=== PATIENT | female | born 1965 | race Caucasian/White ===

== ENCOUNTER → 2017-04-07 | Outpatient (CLI) | payer OTHER, SELFPAY ==
--- NOTE | 2017-04-08 13:39 | US ---
EXAM DESCRIPTION: Thyroid CLINICAL HISTORY: 51 years Female, E03.9 hypothyroidism COMPARISON: None. FINDINGS: The thyroid is very slightly heterogeneous with the right lobe measuring 4.1 x 1.4 x 1.0 cm and the left lobe measuring 4.1 x 1.0 x 1.0 cm with a 4 mm thick isthmus. Overall thyroid size is felt to be within the lower range of normal. On the right no thyroid nodules are noted and on the left a small 3 mm hypoechoic nodule in the mid thyroid is present and felt to not be clinically significant. IMPRESSION: Mildly heterogeneous borderline small thyroid gland with small nonspecific 3 mm hypoechoic nodule mid left lobe of the thyroid. Electronically signed by: Luis Villanueva MD 04/08/2017 1:37 PM CDT
== END | disposition home or self-care (01) ==
LOC: US 15:33
PROVIDERS: ATTEND Obstetrics & Gynecology
DX: E03.9 Hypothyroidism, unspecified (principal)

== ENCOUNTER → 2017-07-05 | Outpatient (CLI) | payer OTHER | END | disposition home or self-care (01) | LOC: GMA 19:26 | PROVIDERS: ATTEND Nurse Practitioner Family | DX: N39.0 Urinary tract infection, site not specified (principal) ==

== ENCOUNTER → 2017-08-01 | Outpatient (CLI) | payer OTHER ==
--- NOTE | 2017-08-03 12:33 | MAM ---
EXAM DESCRIPTION: Screening Mammogram,Bilateral: Digital Mammography CLINICAL HISTORY: 52 years Female SCREENING . No complaints. Sister with breast cancer. Hysterectomy 2007. Taking estropipate. COMPARISON: prior. No prior reports available. Reports from prior examinations also reviewed. Report from prior examination also reviewed. TECHNIQUE: Bilateral CC and MLO projection full-field images, 2-D digital screening mammographic technique. CAD was utilized. FINDINGS: The breast parenchymal density pattern is: Heterogeneously dense breast tissue, which may obscure small masses. No skin thickening or nipple retraction bilateral solitary microcalcifications. Possible focal asymmetry seen only in the right MLO image posterior third of the right breast. May contain small calcifications. Not well seen on the prior study. No focal, stellate mass or density, focal asymmetry , and no suspicious microcalcifications left breast. IMPRESSION: BI-RADS CATEGORY: 0 - INCOMPLETE- Need additional imaging evaluation. FOLLOW-UP: Recall for additional imagin-D digital exaggerated right breast CC image, and full-field right breast LM image. Followed by targeted right breast ultrasound. Written communication concerning the IMPRESSION and Follow-up, will be mailed to the patient and referring health care provider. Electronically signed by: Yazan Alatorre MD 08/03/2017 12:32 PM HEALTHCARE ADVISORY SERVICES MANAGER
== END ==
LOC: MAMMO 08:28
PROVIDERS: ATTEND Obstetrics & Gynecology
DX: Z12.31 Encounter for screening mammogram for malignant neoplasm of breast (principal)

== ENCOUNTER → 2017-08-15 | Outpatient (CLI) | payer OTHER ==
--- NOTE | 2017-08-17 11:24 | US ---
EXAM DESCRIPTION: Breast,Right: Ultrasound CLINICAL HISTORY: 52 yearsFemaleABNORMAL MAMMO COMPARISON: Digital 2-D diagnostic mammogram right breast on this visit. Bilateral 2-D digital screening study 08/01/2017. TECHNIQUE: Transcutaneous scanning of the upper outer quadrant posterior right breast utilizing two-dimensional and Doppler modes. Scanning performed by the team supervisor only. FINDINGS: Scanning of the right breast 1100 clock position 8 cm from the nipple. Heterogeneous fatty and fibroglandular tissues. No discrete solid mass, no cyst. No skin thickening or parenchymal edema. No large calcifications. IMPRESSION: 1. Bi-Rads Category 2: Benign. 2. Please refer to right breast 2-D digital diagnostic mammographic study and report on this visit. The FINDINGS and the follow-up plan were reviewed in person with the patient after the examination. Written communication explaining the IMPRESSION and follow-up will be mailed to the patient and referring care provider. Electronically signed by: Yazan Alatorre MD 08/17/2017 11:23 AM [facility] [[email or web address]]
--- NOTE | 2017-08-17 11:25 | MAM ---
EXAM DESCRIPTION: Diagnostic Mammo,Right: Digital Mammography CLINICAL HISTORY: 52 years Female ABNORMAL MAMMO . Focal asymmetry and possible microcalcifications upper outer quadrant right breast.. COMPARISON: 2-D digital screening bilateral mammography 08/01/2017. Targeted right breast ultrasound following this examination. Reports from prior examinations also reviewed. TECHNIQUE: Right breast exaggerated CC projection and LM full-field images, spot compression upper outer quadrant right breast exaggerated CC and LM projections 2-D digital diagnostic mammographic technique. CAD was utilized. FINDINGS: The breast parenchymal density pattern is: Heterogeneously dense breast tissue, which may obscure small masses. No skin thickening or nipple retraction focal asymmetry does not persist with spot compression. Scattered small microcalcifications. No focal, stellate mass or density, focal asymmetry , and no suspicious microcalcifications right breast. ULTRASOUND: Scanning of the right breast 1100 clock position 8 cm from the nipple. Heterogeneous fatty and fibroglandular tissues. No discrete solid mass, no cyst. No skin thickening or parenchymal edema. No large calcifications. IMPRESSION: BI-RADS CATEGORY: 2 - BENIGN FINDINGS. FOLLOW UP: Return to routine digital bilateral screening, one year interval from July 2017. The FINDINGS and the follow-up plan were reviewed in person with the patient after the examination. Written communication explaining the IMPRESSION and follow-up will be mailed to the patient and referring care provider According to the [employer], yearly mammograms are recommended starting at age 40 and continuing as long as a woman is in good health. Any breast change noted on a breast self-exam should be reported promptly to the patient's healthcare provider. Breast MRI is recommended for women with an approximately 20-25% or greater lifetime risk of breast cancer, including women with a strong family history of breast or ovarian cancer and women who have been treated for Hodgkin's disease. A negative mammographic report should not delay tissue diagnosis in patients with significant clinical history or physical findings. Extremely dense breast tissue limits the sensitivity of digital mammography. Electronically signed by: Yazan Alatorre MD 08/17/2017 11:23 AM AUTOMOTIVE TECHNICIAN INSTRUCTOR
== END | disposition home or self-care (01) ==
LOC: MAMMO 10:15
PROVIDERS: ATTEND Obstetrics & Gynecology
DX: R92.8 Other abnormal and inconclusive findings on diagnostic imaging of breast (principal)

== ENCOUNTER → 2017-09-07 | Outpatient (CLI) | payer OTHER | END | disposition home or self-care (01) | LOC: GMA 20:42 | PROVIDERS: ATTEND Nurse Practitioner Family | DX: N39.0 Urinary tract infection, site not specified (principal) ==

== ENCOUNTER → 2018-05-02 | Outpatient (CLI) | payer OTHER | LOC: GMATM 20:19 | PROVIDERS: ATTEND Nurse Practitioner Family | DX: N39.0 Urinary tract infection, site not specified (principal) ==

== ENCOUNTER → 2018-05-20 | Outpatient (CLI) | payer OTHER | LOC: GMATM 13:40 | PROVIDERS: ATTEND Nurse Practitioner Family | DX: N39.0 Urinary tract infection, site not specified (principal) ==

== ENCOUNTER → 2018-06-30 | Outpatient (CLI) | payer OTHER ==
--- NOTE | 2018-07-01 22:47 | CT ---
EXAM DESCRIPTION: Abdoment/Pelvis w/o Contrast CLINICAL HISTORY: 53 years Female, R31.21 COMPARISON: None available. TECHNIQUE: Contiguous 3 mm axial images were obtained from the lung bases to the level of the proximal femora without the administration of intravenous or oral contrast. Sagittal and coronal reconstructions were reviewed. FINDINGS: Limited evaluation of the solid organs due to the lack of intravenous contrast. THORAX: The imaged lower thorax demonstrates no gross abnormality. LIVER: The liver demonstrates normal size and density with no intrahepatic biliary ductal dilatation. GALLBLADDER: Grossly unremarkable. PANCREAS: Appears normal with no cystic or solid lesions. SPLEEN: Normal ADRENAL GLANDS: Normal with no nodules or masses. KIDNEYS: Both kidneys are symmetric in size and contour with no hydronephrosis or nephrolithiasis or perinephric fluid collections. The visualized ureters appear grossly unremarkable. STOMACH: The stomach is not well-distended limiting evaluation. SMALL BOWEL: The small bowel loops demonstrate variable degrees of distention with no abnormal dilatation or other signs to suggest bowel obstruction. LARGE BOWEL: Large amount of fecal material is noted throughout the colon, consistent with constipation. No evidence of free intraperitoneal air or fluid. RETROPERITONEUM: The abdominal aorta is nonaneurysmal with no significant atherosclerosis. The inferior vena cava is normal in size and caliber. No abnormally enlarged retroperitoneal lymph nodes are identified. URINARY BLADDER:The urinary bladder is well-distended with no gross abnormality. The uterus and ovaries are surgically absent. ADDITIONAL FINDINGS: None. BONES: Mild degenerative changes are identified in the visualized bones.No evidence of osteophytic or osteoblastic lesions. IMPRESSION: Severe constipation. Otherwise no acute intra-abdominal or intrapelvic process. This exam was performed according to our departmental dose-optimization program, which includes automated exposure control, adjustment of the mA and/or kV according to patient size and/or use of iterative reconstruction technique. Electronically signed by: Jignesh Osorio MD 07/01/2018 10:45 PM CDT
== END ==
LOC: CT 15:48
PROVIDERS: ATTEND Family Medicine
DX: R31.21 Asymptomatic microscopic hematuria (principal); K59.00 Constipation, unspecified

== ENCOUNTER → 2018-12-08 | Outpatient (CLI) | payer OTHER | LOC: GMAJS 18:54 | PROVIDERS: ATTEND Physician Assistant | DX: N39.0 Urinary tract infection, site not specified (principal) ==

== ENCOUNTER → 2019-04-20 | Outpatient (CLI) | payer OTHER | LOC: GMATM 18:58 | PROVIDERS: ATTEND Nurse Practitioner Family | DX: N39.0 Urinary tract infection, site not specified (principal); Z97.5 Presence of (intrauterine) contraceptive device ==

== ENCOUNTER → 2020-02-07 | Outpatient (CLI) | payer OTHER | DX: Z01.818 Encounter for other preprocedural examination (principal) ==

== ENCOUNTER → 2020-03-20 | Outpatient (CLI) | payer OTHER ==
--- NOTE | 2020-03-26 14:44 | MAM ---
EXAM DESCRIPTION: 3D Screening BILATERAL : Digital Mammography. CLINICAL HISTORY: 54 years Female SCREEN . No complaints. No personal history of breast cancer. Female sibling with breast cancer unknown age. Remote family history of breast cancer. Menarche age 17. Childbirth age 26. Menopause age 41.. Lifetime risk of developing breast cancer (Tyrer-Cuzick model)(%): 14.7. COMPARISON: Bilateral screening digital breast tomosynthesis January 2019 and diagnostic digital mammography right breast July 2017. TECHNIQUE: Bilateral CC and MLO projection full-field images, digital tomosynthesis mammographic technique. Bilateral digital 2-D full-field MLO images. CAD available for 2-D images. FINDINGS: The breast parenchymal density pattern is: Heterogeneously dense breast tissue, which may obscure small masses. No skin thickening or nipple retraction. Focal asymmetry appears larger in the middle third of the right breast at the 6:00 position 6 cm from the nipple. Solitary microcalcifications bilaterally. No new focal, stellate mass or density, focal asymmetry , and no suspicious microcalcifications left breast. IMPRESSION: BI-RADS CATEGORY: 0 - INCOMPLETE- Need additional imaging evaluation. RECOMMENDATIONS: FOLLOW-UP: Recall for additional imaging: Full-field 2-D and tomosynthesis right breast with LM projection. Directed ultrasound right breast region of interest.. Written communication concerning the IMPRESSION and Follow-up, will be mailed to the patient and referring health care provider. Electronically signed by: Yazan Alatorre MD 03/26/2020 2:43 PM CDT
== END ==
LOC: MAMMO 13:30
PROVIDERS: ATTEND General Practice
DX: Z12.31 Encounter for screening mammogram for malignant neoplasm of breast (principal)

== ENCOUNTER → 2020-04-09 | Outpatient (CLI) | payer OTHER ==
--- NOTE | 2020-04-09 20:02 | MAM ---
EXAM DESCRIPTION: 3D Diagnostic, Right (accession [id number]), Breast,Right (accession [id number]): Ultrasound CLINICAL HISTORY: 54 yearsFemale focal asymmetry right breast Lifetime risk of developing breast cancer (Tyrer-Cuzick model)(%): 14.7 COMPARISON: Bilateral screening digital breast tomosynthesis March 20. TECHNIQUE: Right breast LM projection full-field images, digital tomosynthesis technique. Right breast 2-D digital full-field images: LM projection CAD available for 2-D images.. Transcutaneous scanning of the right breast utilizing kasper-scale and Doppler modes. Scanning performed by the tobacco drummer ; observation by Dr. Alatorre. FINDINGS: The breast parenchymal density pattern is: Heterogeneously dense breast tissue, which may obscure small masses. No skin thickening or nipple retraction focal asymmetry middle third of the right breast 6 cm from the nipple at 6:00, but not as distinct as on the screening study. Ultrasound: Region of interest middle third right breast at 6:00. Mostly fibroglandular tissues with minimal fatty tissues anterior. No dominant solid mass and no distinct cyst. No fluid collection or large calcifications. No overlying skin changes. IMPRESSION: Benign exam. BIRAD CATEGORY: 2 BENIGN FINDINGS. RECOMMENDATIONS: FOLLOW UP: Return to routine digital bilateral mammographic screening, one year interval from February 2020. Written communication explaining the IMPRESSION and follow-up, will be mailed to the patient and referring health care provider. The FINDINGS and the FOLLOW-UP plan were reviewed in person with the patient after the examination. According to the [employer], yearly mammograms are recommended starting at age 40 and continuing as long as a woman is in good health. Any breast change noted on a breast self-exam should be reported promptly to the patient's healthcare provider. Breast MRI is recommended for women with an approximately 20-25% or greater lifetime risk of breast cancer, including women with a strong family history of breast or ovarian cancer and women who have been treated for Hodgkin's disease. A negative mammographic report should not delay tissue diagnosis in patients with significant clinical history or physical findings. Extremely dense breast tissue limits the sensitivity of digital mammography. Electronically signed by: Yazan Alatorre MD 04/09/2020 8:01 PM CDT
== END ==
LOC: MAMMO 10:11
PROVIDERS: ATTEND Obstetrics & Gynecology
DX: R92.8 Other abnormal and inconclusive findings on diagnostic imaging of breast (principal)
CPT/HCPCS: 76641; 77065; G0279

== ENCOUNTER → 2020-06-13 | Outpatient (CLI) | payer OTHER ==
--- NOTE | 2020-06-16 12:20 | MRI ---
Study: MRI of the Left Knee. Indication: LEFT KNEE PAIN Technique: Multiplanar, multi sequence MRI of the left knee was obtained without intravenous contrast. Comparison: None Findings: ACL, PCL, MCL, and lateral collateral ligament complex intact. Scattered degenerative signal change medial meniscus and lateral meniscus without tear. Areas of grade 2 chondral thinning medial and lateral knee compartments with tiny joint line osteophytes. Tendinosis quadriceps tendon insertion. Patellar tendon intact. Patella normally located. Patchy grade 2 chondrosis throughout the patella. Tiny effusion. No acute fracture. Tiny Talbot's cyst. Impression: Degenerative signal changes medial meniscus and lateral meniscus without tear. Tricompartmental areas of grade 2 chondrosis. Tiny effusion. Electronically signed by: Patel Mills MD 06/16/2020 12:18 PM CDT
== END ==
LOC: MRI 07:00
PROVIDERS: ATTEND Nurse Practitioner Family
DX: M23.304 Other meniscus derangements, unspecified medial meniscus, left knee (principal); M23.301 Other meniscus derangements, unspecified lateral meniscus, left knee; M94.262 Chondromalacia, left knee; M25.462 Effusion, left knee